=== PATIENT | male | born 1955 | race Caucasian/White ===

== ENCOUNTER → 2016-05-10 | Outpatient (REF) | payer OTHER ==
[~2016-05-10] MED LIST: ASPI1TAB PO; ASPI81TA PO; ATOR1TAB21 PO; BACL-67 PO; IBUP60TA PO; LABE10TAB PO; MAPA325T2 PO; NICO21PAT TD
== END ==
LOC: M LAB REF 16:30
PROVIDERS: ATTEND Surgery
DX: T81.500A Unspecified complication of foreign body accidentally left in body following surgical operation, initial encounter (principal)

== ENCOUNTER → 2016-05-11 | Outpatient (REF) | payer OTHER ==
[2016-05-11 15:33] LABS: ANION GAP 7 MEQ/L (8-16); BLOOD UREA NITROGEN 22 MG/DL (7-18); CALCIUM LEVEL 9.6 MG/DL (8.8-10.2); CARBON DIOXIDE LEVEL 29 MEQ/L (21-32); CHLORIDE LEVEL 105 MEQ/L (98-107); CREATININE FOR GFR 1.01 MG/DL (0.70-1.30); GLOMERULAR FILTRATION RATE > 60.0 (>49); GLUCOSE, FASTING 88 MG/DL (80-110); POTASSIUM SERUM 4.6 MEQ/L (3.5-5.1); SODIUM LEVEL 141 MEQ/L (136-145)
== END ==
LOC: M SFHCPLAZ 11:23
PROVIDERS: ATTEND Family Medicine
DX: I10 Essential (primary) hypertension (principal)

== ENCOUNTER → 2016-05-15 | Outpatient (CLI) | payer OTHER ==
[~2016-05-15] VITALS: Ht 175.3 cm; Wt 95.3 kg
[~2016-05-15] MED LIST changes: +LABETALOL HCL 100 MG/20 ML VIAL As Ordered ONE; +NS 1,000 ML IV SCH; +PROPOFOL 200 MG/20 ML VIAL As Ordered ONE
--- NOTE | 2016-05-15 10:36 | ROOR ---
Patient Name: Mo Gamble Procedure Date: 05/15/2016 10:15 AM Date of : 1955 Age: 61 Room: M OPP Gender: Male Note Status: Finalized Procedure: Colonoscopy Indications: Heme positive stool Providers: Micah DIAL MD Referring MD: Brie Gee MD Requesting Provider: Medicines: Monitored Anesthesia Care Complications: No immediate complications. Procedure: Pre-Anesthesia Assessment: - The heart rate, respiratory rate, oxygen saturations, blood pressure, adequacy of pulmonary ventilation, and response to care were monitored throughout the procedure. The Colonoscope was introduced through the anus and advanced to the cecum, identified by appendiceal orifice and ileocecal valve. The colonoscopy was performed without difficulty. The patient tolerated the procedure well. The quality of the bowel preparation was good. Findings: The perianal and digital rectal examinations were normal. Two sessile polyps were found in the sigmoid colon and in the cecum. The polyps were 4 to 5 mm in size. These polyps were removed with a cold snare. Resection and retrieval were complete. A few small-mouthed diverticula were found in the sigmoid colon. Internal hemorrhoids were found during retroflexion. The hemorrhoids were small. The exam was otherwise without abnormality on direct and retroflexion views. (Exam: Complete, Prep: Good or Excellent.) Impression: - Two 4 to 5 mm polyps in the sigmoid colon and in the cecum, removed with a cold snare. Resected and retrieved. - Mild diverticulosis in the sigmoid colon. - Small internal hemorrhoids. - The examination was otherwise normal on direct and retroflexion views. - (Exam: Complete, Prep: Good or Excellent.) Recommendation: - Telephone endoscopist for pathology results in 2 weeks. - If the pathology report reveals adenomatous tissue, then repeat the colonoscopy for surveillance in 3 - 5 years. - If the pathology report indicates hyperplastic polyp, then repeat colonoscopy for screening purposes in 10 years. Micah Dial MD Micah DIAL MD 05/15/2016 10:35:44 AM This report has been signed electronically. Number of Addenda: 0 Note Initiated On: 05/15/2016 10:15 AM Estimated Blood Loss: Estimated blood loss: none.
[2016-05-15 11:02] VITALS: BP 150/107
== END | disposition home or self-care (01) ==
LOC: M OPP 09:04
PROVIDERS: ATTEND Internal Medicine Gastroenterology
DX: D12.5 Benign neoplasm of sigmoid colon (principal); K57.30 Diverticulosis of large intestine without perforation or abscess without bleeding; K64.8 Other hemorrhoids; I10 Essential (primary) hypertension; E78.00 Pure hypercholesterolemia, unspecified; R12 Heartburn; R06.83 Snoring; M51.27 Other intervertebral disc displacement, lumbosacral region; Z87.891 Personal history of nicotine dependence; Z86.73 Personal history of transient ischemic attack (TIA), and cerebral infarction without residual deficits; Z79.82 Long term (current) use of aspirin; Z79.899 Other long term (current) drug therapy

== ENCOUNTER → 2016-07-25 | Outpatient (CLI) | payer OTHER ==
[~2016-07-25] MED LIST changes: -LABETALOL HCL 100 MG/20 ML VIAL As Ordered ONE; -NS 1,000 ML IV SCH; -PROPOFOL 200 MG/20 ML VIAL As Ordered ONE
--- NOTE | 2016-07-25 12:32 | REP ---
Clinical: Spondylosis. Technique: AP, lateral, bilateral oblique, flexion/extension and coned-down views of the lumbosacral spine. Findings: Grade 1 retrolisthesis at the L2-3 level with associated anterior osteophytes, endplate sclerosis and disc space narrowing. Grade 1 anterolisthesis at the L4-5 and L5-L1 levels with hypertrophic facet changes noted. Remainder examination demonstrates age-related changes. No evidence for acute fracture / compression injury. Impression: Degenerative changes as noted above. No acute fracture / compression injury. Signed by Maciej Barrios MD 07/25/2016 12:24 P
--- NOTE | 2016-07-25 12:45 | REP ---
CERVICAL SPINE SERIES: Full cervical spine series is performed with eight total views obtained. There is no compression fracture. There is no malalignment. There is mild reversal of the normal cervical lordosis with no prevertebral soft tissue swelling. There is moderate spurring of C4 through C7. There is mild disc space narrowing of C4-5 with subchondral sclerosis. There is moderately severe disc space narrowing at C5-6 at C5-6 and C6-7. There is diffuse narrowing, sclerosis and spurring at the posterior facet joints. Uncovertebral and facet spurring appears to cause mild neural foraminal narrowing at C4-5 and C5-6 on the left as well as at C4-5 and C6-7 on the right. There appears to be at least a moderate to severe degree of neural foraminal narrowing at C5-6 on the right. IMPRESSION: Degenerative changes as discussed in detail above, most significantly at C5-6 and C6-7. Signed by Cristiano Solano MD 07/25/2016 03:42 P
== END ==
LOC: M RAD 11:32
PROVIDERS: ATTEND Neurological Surgery
DX: M47.892 Other spondylosis, cervical region (principal); M47.896 Other spondylosis, lumbar region

== ENCOUNTER 2016-08-07 20:42 | Emergency (ER) | payer OTHER ==
[~2016-08-07] VITALS: Ht 175.3 cm; Wt 104.3 kg
[2016-08-07] MEDS ORDERED: LIDOCAINE 1% MDV 20ML VIAL IM ONE (21:45)
[2016-08-07] MEDS ORDERED: DERMABOND TOPICAL SKIN ADHESIVE TOP ONE (22:00)
[2016-08-07 22:23] VITALS: BP 157/92
--- NOTE | 2016-08-08 16:00 | ER ---
DATE OF CONSULTATION: 08/07/2016 CHIEF COMPLAINT: Abdominal wall bleeding from wound. HISTORY OF PRESENT ILLNESS: The patient is a 61-year-old male who had a wound on his left abdomen that he had excised by me in the office today. This was likely a sebaceous cyst versus a suture granuloma from a previous surgery. He had this chronic wound. He had an elliptical incision. This area was excised in the office today without any complications. He had no bleeding from this at all. He had a couple nylon sutures in place when he left the office without any difficulty. The patient called me from home about 4 hours after the procedure and he was having some significant bleeding that would not stop. I told him to hold pressure on it and place ice on it and he did that for a couple hours without any improvement so he came into the emergency room (ER) to be evaluated. In the ER they again attempted just to treat it with pressure dressings however, it would not stop bleeding, so they asked me to come evaluate. On exam, the patient does have a very large amount of bleeding from this wound that will not slow down with pressure. I got a bunch of supplies prepared, opened up his sutures and found that there was oozing from the entire wound bed. There was no one spot in particular that was bleeding. We attempted to stop this with some battery-powered cautery in the ER that did not help at all. I also tried throwing a couple 4-0 Vicryl sutures in the bottom of the wound to help close it up, that did not improve things at all either. Finally, I took some 3-0 nylon sutures and placed them full thickness through the entire depth of the wound and tied them tightly to help tamponade the bleeding. Once those sutures were in place, all of the bleeding was stopped. I then cleaned the entire area again with Betadine, placed a layer of Dermabond on top of this, and then a pressure dressing on top of that. The patient was discharged home from the emergency room to keep an eye on it. If for some reason he develops swelling in the area or bleeding returns, he is to call me and I would take him to my office in the morning and attempt closure a second time with better equipment. The patient tolerated the procedure well, had no more questions. He was discharged from the emergency room and will followup with me soon.
== END 2016-08-07 22:35 | disposition home or self-care (01) ==
LOC: M ED 21:24
DX: L76.21 Postprocedural hemorrhage of skin and subcutaneous tissue following a dermatologic procedure (principal); Z79.899 Other long term (current) drug therapy; Z79.82 Long term (current) use of aspirin

== ENCOUNTER → 2016-08-07 | Outpatient (REF) | payer OTHER | LOC: M LAB REF 18:20 | PROVIDERS: ATTEND Surgery | DX: D48.5 Neoplasm of uncertain behavior of skin (principal) ==

== ENCOUNTER → 2016-08-21 | Outpatient (CLI) | payer OTHER ==
[2016-08-21 16:49] LABS: BASO # 0.1 K/mm3 (0.0-0.2); BASO % 0.8 % (0.0-1.0); EOS # 0.1 K/mm3 (0.0-0.50); EOS % 1.1 % (0.0-3.0); LARGE UNSTAINED CELL # 0.2 K/mm3 (0.0-0.4); LARGE UNSTAINED CELL % 2.7 % (0.0-4.0); LYMPH # 1.4 K/mm3 (1.5-4.5); MEAN CORPUSCULAR HEMOGLOBIN 32.2 pg (27.0-33.0); MEAN CORPUSCULAR VOLUME 97.6 fl (80.0-96.0); MONO # 0.5 K/mm3 (0.0-0.8); MONO % 6.7 % (0.0-5.0); NEUTROPHILS % 69.7 % (36.0-66.0); PLATELET COUNT, AUTOMATED 305 k/mm3 (150-450); WHITE BLOOD COUNT 7.2 K/mm3 (4.0-10.0)
[2016-08-21 16:55] LABS: INR 0.96
--- NOTE | 2016-08-21 17:16 | REP ---
Chest x-ray: Two views. History: Encounter for other procedural examination. Comparison chest x-ray: February 15, 2016. Findings: The lungs are symmetrically aerated and free of infiltrate. Pleural angles are sharp. Left hemidiaphragm is very slightly elevated, unchanged. Pulmonary vasculature is not increased. There are two orthopedic metallic anchors in the right humeral head and there is old calcification or ossification in the coracoclavicular ligament on the right side. No other significant bony abnormality is seen. The heart is not enlarged. Impression: No active cardiopulmonary disease. Signed by Marlon Ruiz MD 08/22/2016 01:36 P
[2016-08-21 18:02] LABS: ALBUMIN/GLOBULIN RATIO 1.29 (1.00-1.93); ALKALINE PHOSPHATASE 67 U/L (45-117); ALT/SGPT 25 U/L (12-78); ANION GAP 7 MEQ/L (8-16); AST/SGOT 13 U/L (15-37); BILIRUBIN,TOTAL 0.3 MG/DL (0.2-1.0); BLOOD UREA NITROGEN 12 MG/DL (7-18); CALCIUM LEVEL 9.4 MG/DL (8.8-10.2); CARBON DIOXIDE LEVEL 30 MEQ/L (21-32); CHLORIDE LEVEL 106 MEQ/L (98-107); GLOMERULAR FILTRATION RATE > 60.0 (>49); GLUCOSE, FASTING 111 MG/DL (80-110); POTASSIUM SERUM 3.8 MEQ/L (3.5-5.1); SODIUM LEVEL 143 MEQ/L (136-145); TOTAL PROTEIN 7.1 GM/DL (6.4-8.2)
--- NOTE | 2016-08-21 19:07 | ECGEPIP ---
Stationary ECG Study [facility] Test Date: 2016-08-21 Pat Name: HEMANTH CASTRO Department: Room: - Gender: M C[employer] Sack [employer]aker: MERY : 1955 Requested By: TATYANA Shukla Order Number: [id number] Reading MD: Micah Snow Measurements Intervals [place] Rate: 69 P: 54 NH: 172 QRS: -11 QRSD: 106 T: 13 QT: 397 QTc: 428 Interpretive Statements SINUS RHYTHM WITH SINUS ARRHYTHMIA INCOMPLETE RIGHT BUNDLE BRANCH BLOCK as QRS is slightly longer when compared to tracing from 02-17-16 Electronically Signed On 08-21-2016 19:07:18 EDT by Micah Snow
== END ==
LOC: M LAB 15:40
PROVIDERS: ATTEND Neurological Surgery
DX: Z01.818 Encounter for other preprocedural examination (principal); M48.00 Spinal stenosis, site unspecified

== ENCOUNTER 2016-09-03 09:09 | Day surgery (SDC) | payer OTHER ==
[~2016-09-03] VITALS: Ht 175.3 cm; Wt 104.3 kg
[2016-09-03] MEDS ORDERED: dexameTHASONE 4 MG/ML 1ML VIAL (J1100) IV ONE (09:15)
[2016-09-03] MEDS ORDERED: LR 1,000 ML IV ONE (09:15)
[2016-09-03] MEDS ORDERED: methylPREDNISolone SUSP 40 MG/ML (DEPO-medrol) VIAL (J1030) As Ordered ONE ×2 (10:36→14:49)
[2016-09-03] MEDS ORDERED: THROMBIN SOLN 20,000 UNITS KIT As Ordered ONE (10:36)
[2016-09-03] MEDS ORDERED: BACITRACIN PWD 50,000 UNITS VIAL As Ordered ONE ×2 (10:37→11:46)
[2016-09-03] MEDS ORDERED: dexameTHASONE 4 MG/ML 1ML VIAL (J1100) As Ordered ONE (11:11)
[2016-09-03] MEDS ORDERED: PROPOFOL 200 MG/20 ML VIAL As Ordered ONE (11:11)
[2016-09-03] MEDS ORDERED: fentaNYL 250 MCG/5 ML INJECTION (J3010) As Ordered ONE (11:11)
[2016-09-03] MEDS ORDERED: ROCURONIUM BROMIDE 50 MG/5 ML VIAL As Ordered ONE ×2 (11:11→12:31)
[2016-09-03] MEDS ORDERED: LIDOCAINE 2% INJ 100 MG/5 ML SDV (FOR ANES.) As Ordered ONE (11:11)
[2016-09-03] MEDS ORDERED: MIDAZOLAM INJ 2 MG/2 ML VIAL (J2250) As Ordered ONE (11:12)
[2016-09-03] MEDS ORDERED: ePHEDrine SULFATE 25 MG/5 ML(5MG/ML) SYRINGE As Ordered ONE (12:15)
[2016-09-03] MEDS ORDERED: HYDROmorphone HCL 2 MG/ML 1ML VIAL (J1170) As Ordered ONE (13:38)
[2016-09-03] MEDS ORDERED: PHENYLephrine HCL 500 MCG/5 ML (100MCG/ML) SYRINGE (J2370) As Ordered ONE (13:45)
--- NOTE | 2016-09-03 14:42 | REP ---
LUMBAR SPINE, ONE VIEW: HISTORY: Spinal stenosis. A single portable lateral radiograph was obtained. A metal probe present overlying the neural arch at the L1-2 level. Signed by Jose Franco MD 09/03/2016 02:47 P
[2016-09-03] MEDS ORDERED: GLYCOPYRROLATE INJ 0.2 MG/ML 2 ML VIAL As Ordered ONE (15:27)
[2016-09-03] MEDS ORDERED: NEOSTIGMINE 1MG/ML 5 ML SYRINGE (J2710) As Ordered ONE (15:27)
[2016-09-03] MEDS ORDERED: ONDANSETRON 4MG/2ML VIAL (J2405) As Ordered ONE (15:35)
[2016-09-03] MEDS ORDERED: ceFAZolin 1GM INJ (J0690) As Ordered ONE (16:32)
[2016-09-03] MEDS ORDERED: MORPHINE 10 MG/ML 1ML VIAL As Ordered ONE (17:33)
[2016-09-03] MEDS: MORPHINE 2 MG/ML 1ML SYRINGE IV PRN ×5 (17:35→17:55)
[2016-09-03] MEDS ORDERED: ONDANSETRON 4MG/2ML VIAL (J2405) IV PRN ×2 (17:45)
[2016-09-03] MEDS ORDERED: ACETAMINOPHEN TAB 650MG DOSE (2X325MG) PO PRN (17:45)
[2016-09-03] MEDS ORDERED: MORPHINE 4 MG/ML 1ML SYRINGE IV PRN (17:45)
[2016-09-03] MEDS ORDERED: NORCO, ANEXSIA 5/325MG TABLET (HYDROcodone/ACETAMINOPHEN) PO PRN (17:45)
[2016-09-03] MEDS ORDERED: fentaNYL 100 MCG/2 ML INJECTION (J3010) IV PRN (17:45)
[2016-09-03] MEDS ORDERED: KCL 20MEQ IN D5/0.45NS 1000ML 1,000 ML IV SCH (17:45)
[2016-09-03] MEDS: LR 1,000 ML IV SCH ×2 (17:45→19:51)
[2016-09-03] MEDS: CEFUROXIME SODIUM 750 MG in D5W MINI-BAG PLUS 50 ML IV SCH (19:50)
[2016-09-03 20:00] VITALS: BP 130/72
[2016-09-03] MEDS: CARISOPRODOL 350 MG TAB PO SCH (20:05)
[2016-09-03] MEDS: NORCO, ANEXSIA 5/325MG TABLET (HYDROcodone/ACETAMINOPHEN) PO PRN (20:06)
[2016-09-03 21:00] VITALS: BP 143/90
[2016-09-03 22:00] VITALS: BP 125/77
[2016-09-03 23:00] VITALS: BP 135/72
[2016-09-04 02:00] VITALS: BP 125/77
[2016-09-04] MEDS: CEFUROXIME SODIUM 750 MG in D5W MINI-BAG PLUS 50 ML IV SCH ×2 (03:17→12:00)
[2016-09-04] MEDS: NORCO, ANEXSIA 5/325MG TABLET (HYDROcodone/ACETAMINOPHEN) PO PRN ×2 (04:05→10:07)
[2016-09-04 06:00] VITALS: BP 127/67
[2016-09-04] MEDS: CARISOPRODOL 350 MG TAB PO SCH (10:06)
[2016-09-04] MEDS ORDERED: NORC1TAB4 PO (12:54)
[2016-09-04] MEDS ORDERED: CIPR-250 PO (12:54)
--- NOTE | 2016-09-20 15:22 | RO ---
DATE OF PROCEDURE: 09/03/2016 PREOPERATIVE DIAGNOSES: Lumbar spondylosis, radiculopathy, neurogenic claudication, probable synovial cyst L1-L2, and lumbar stenosis at L4-L5. POSTOPERATIVE DIAGNOSES: Lumbar spondylosis, radiculopathy, neurogenic claudication, probable synovial cyst L1-L2, and lumbar stenosis at L4-L5. PROCEDURE: Left L1-L2 and L4-5 decompression with partial facet rhizotomies on the left from L1 through S1. SURGEON: Ivan Barros MD DIRECTOR TOXICOLOGY: Lyla Meneses PA-C ANESTHESIA: General. FINDINGS: Please see my office notes for detailed preoperative evaluation and discussions. Patient had symptomatic lumbar spondylosis with neurogenic and radicular pain in his low back and left leg mostly. Patient's workup showed diffuse degenerative changes involving the disc spaces as well as the posterior elements, particularly at L1-L2 as well as L4-L5. Patient was aware of all options, risks, scope, expected outcome, sequelae, and complications of the proposed salvage decompression. Patient understood that not all his symptoms could be readily explained on his workup, thus not all may be addressed. He understood his surgery may be staged. Patient understood the risks of surgery include, but are not limited to, , paralysis, coma, meningitis, spinal fluid leakage, seizure disorder, persistence or worsening of symptoms, and/or any catastrophic sequelae. Patient understood the risks include pulmonary embolism (PE), myocardial infarction (LA), deep venous thrombosis (DVT), Infection, bleeding. Patient reported once again that there is no way he is willing to live with his pain and misery and is willing to take any or all risk for any possible benefit. After informed consent and after all matters pertaining to surgery, anesthesia, and followup care had been discussed with him on a few occasions and also in the preoperative area, he wished to proceed with surgery. DESCRIPTION OF PROCEDURE: Once in the operating room, general endotracheal anesthesia was given by the anesthesia service. The area of surgery was prepped and draped in the usual sterile fashion after placing positioning him prone on a translucent Jb frame and a fluoroscopic table. After adequate prep and drape and under x-ray guidance, a skin incision was given centering over the spinous process of L1-L2. Lumbodorsal fascia were reached and incised to the left of the midline. Paraspinal muscles were from midline structures and held apart with the help of self-retaining retractors. There was marked hypertrophy of exposed facets. Posterolateral aspect of these were coagulated with the bipolar cautery in the hope of achieving partial facet rhizotomies. Generous lico-semi laminectomies were performed. Hypertrophic ligamentum flavum and facets were removed and rongeured. There was some scarring peridurally, suggestive of a ruptured synovial cyst. Complete decompression of the thecal sac was performed, and the decompression was carried inferiorly until the origin of the L3 nerve root. Superiorly and laterally, decompression was carried out in between the pedicles to make more room for the exiting nerve root. Similar procedure was carried out at L4-L5. Findings were similar. Complete decompression was carried out on the left and across the midline at these levels. There was hard and firm bulging disc at these levels, and they were left in situ. Complete decompression was achieved at these levels, and the posterolateral aspect of the facets which had quite a bit of redundant capsules were coagulated from L1 through S1 on the left with bipolar cautery in the hope of achieving partial facet rhizotomies. Hemostasis was checked and secured throughout the procedure. The blood loss was less than 100 mL. The wound was closed in anatomic layers. Patient tolerated the procedure well and was transferred to recovery room in stable condition.
== END 2016-09-04 13:30 | disposition home or self-care (01) ==
LOC: M SDC 09:09 → M MS5PR 18:20 → M SDC 09-04 13:30
PROVIDERS: ATTEND Neurological Surgery
DX: M47.26 Other spondylosis with radiculopathy, lumbar region (principal); M53.86 Other specified dorsopathies, lumbar region; M48.06 Spinal stenosis, lumbar region; M79.604 Pain in right leg; M79.605 Pain in left leg; I10 Essential (primary) hypertension; Z91.89 Other specified personal risk factors, not elsewhere classified; R31.9 Hematuria, unspecified; Z86.73 Personal history of transient ischemic attack (TIA), and cerebral infarction without residual deficits; R05 Cough; R12 Heartburn; K59.00 Constipation, unspecified; R06.83 Snoring; E78.00 Pure hypercholesterolemia, unspecified; Z87.19 Personal history of other diseases of the digestive system; Z87.891 Personal history of nicotine dependence; Z79.899 Other long term (current) drug therapy; Z79.82 Long term (current) use of aspirin
CPT/HCPCS: 63030; 63035; 63185; 72110; 88305; 96375; 96376; C1762; J0690; J0697; J1030; J1100; J1170; J2250; J2370; J2405; J2710; J3010

== ENCOUNTER → 2016-10-31 | Outpatient (REF) | payer OTHER ==
[~2016-10-31] MED LIST changes: -BACL-67 PO; +BACL1TAB9 PO; +CIPR-250 PO; +IBUP1TAB6 PO; -IBUP60TA PO; +NORC1TAB4 PO
[2016-10-31 16:33] LABS: ANION GAP 4 MEQ/L (8-16); BLOOD UREA NITROGEN 17 MG/DL (7-18); CALCIUM LEVEL 8.8 MG/DL (8.8-10.2); CARBON DIOXIDE LEVEL 30 MEQ/L (21-32); CHLORIDE LEVEL 108 MEQ/L (98-107); CREATININE FOR GFR 1.01 MG/DL (0.70-1.30); GLOMERULAR FILTRATION RATE > 60.0 (>49); GLUCOSE, FASTING 111 MG/DL (80-110); SODIUM LEVEL 142 MEQ/L (136-145)
== END ==
LOC: M SFHCPLAZ 11:28
PROVIDERS: ATTEND Family Medicine
DX: I10 Essential (primary) hypertension (principal)

== ENCOUNTER → 2017-08-16 | Outpatient (REF) | payer OTHER ==
[2017-08-16 15:51] LABS: ANION GAP 4 MEQ/L (8-16); BLOOD UREA NITROGEN 16 MG/DL (7-18); CALCIUM LEVEL 9.4 MG/DL (8.8-10.2); CARBON DIOXIDE LEVEL 28 MEQ/L (21-32); CHLORIDE LEVEL 109 MEQ/L (98-107); CHOLESTEROL LEVEL 118 MG/DL (<200); CHOLESTEROL RISK RATIO 1.903 (<5); CREATININE FOR GFR 0.99 MG/DL (0.70-1.30); GLOMERULAR FILTRATION RATE > 60.0 (>49); GLUCOSE, FASTING 112 MG/DL (70-100); HDL CHOLESTEROL 62 MG/DL (>40); NON-HDL-C 56 MG/DL; POTASSIUM SERUM 4.5 MEQ/L (3.5-5.1); SODIUM LEVEL 141 MEQ/L (136-145); TRIGLYCERIDES LEVEL 80 MG/DL (<150)
== END ==
LOC: M LABDRAW1 11:54
DX: I63.9 Cerebral infarction, unspecified (principal); I10 Essential (primary) hypertension

== ENCOUNTER → 2018-05-15 | Outpatient (REF) | payer OTHER ==
[~2018-05-15] MED LIST changes: +ASPI81CH40 PO; -ASPI81TA PO
== END ==
LOC: M LABDRAW1 15:30
PROVIDERS: ATTEND Family Medicine
DX: Z13.1 Encounter for screening for diabetes mellitus (principal)

== ENCOUNTER → 2018-06-26 | Outpatient (REF) | payer OTHER | LOC: M LAB REF 16:45 | PROVIDERS: ATTEND Surgery | DX: L02.219 Cutaneous abscess of trunk, unspecified (principal) ==

== ENCOUNTER → 2018-12-12 | Outpatient (REF) | payer OTHER ==
[~2018-12-12] MED LIST changes: -ASPI1TAB PO; +ASPI81CH36 PO; -ASPI81CH40 PO; +ASPI81TA26 PO; -NORC1TAB4 PO; +NORC1TAB7 PO
[2018-12-12 13:24] LABS: ALT/SGPT 28 U/L (12-78); BILIRUBIN,TOTAL 0.3 MG/DL (0.2-1.0); BLOOD UREA NITROGEN 15 MG/DL (7-18); CALCIUM LEVEL 8.9 MG/DL (8.8-10.2); CARBON DIOXIDE LEVEL 27 MEQ/L (21-32); CHLORIDE LEVEL 110 MEQ/L (98-107); CHOLESTEROL LEVEL 126 MG/DL (<200); CHOLESTEROL RISK RATIO 2.135 (<5); CREATININE FOR GFR 0.99 MG/DL (0.70-1.30); GLOMERULAR FILTRATION RATE > 60.0 (>49); GLUCOSE, FASTING 120 MG/DL (70-100); HDL CHOLESTEROL 59 MG/DL (>40); LDL CHOLESTEROL 52 MG/DL (<100); NON-HDL-C 67 MG/DL; POTASSIUM SERUM 4.5 MEQ/L (3.5-5.1); SODIUM LEVEL 142 MEQ/L (136-145); TOTAL PROTEIN 6.9 GM/DL (6.4-8.2); TRIGLYCERIDES LEVEL 76 MG/DL (<150)
[2018-12-12 13:29] LABS: CREATININE, URINE 45.3 MG/DL
== END ==
LOC: M LABDRAW1 11:51
PROVIDERS: ATTEND Family Medicine
DX: I10 Essential (primary) hypertension (principal); I63.9 Cerebral infarction, unspecified; Z72.89 Other problems related to lifestyle

== ENCOUNTER → 2019-06-12 | Outpatient (REF) | payer OTHER ==
[~2019-06-12] MED LIST changes: +ASPI81CH32 PO; -ASPI81CH36 PO
[2019-06-12 14:01] LABS: BLOOD UREA NITROGEN 20 MG/DL (7-18); CALCIUM LEVEL 9.5 MG/DL (8.8-10.2); CARBON DIOXIDE LEVEL 26 MEQ/L (21-32); CHLORIDE LEVEL 107 MEQ/L (98-107); GLOMERULAR FILTRATION RATE > 60.0 (>49); GLUCOSE, FASTING 94 MG/DL (70-100); POTASSIUM SERUM 4.5 MEQ/L (3.5-5.1); SODIUM LEVEL 140 MEQ/L (136-145)
== END ==
LOC: M SFHCPLAZ 11:31
PROVIDERS: ATTEND Family Medicine
DX: I10 Essential (primary) hypertension (principal)

== ENCOUNTER → 2019-12-08 | Outpatient (REF) | payer OTHER ==
[~2019-12-08] MED LIST changes: -MAPA325T2 PO; +MAPA325T8 PO
[2020-01-04 14:51] LABS: WHITE BLOOD COUNT 12.6 10^3/uL (4.0-10.0)
[2020-01-04 14:52] LABS: HEMATOCRIT 40.5 % (42.0-52.0); HEMOGLOBIN 13.3 g/dl (13.5-17.5); MEAN CORPUSCULAR HEMOGLOBIN 32.5 pg (27.0-33.0); MEAN CORPUSCULAR HGB CONC 32.8 g/dl (32.0-36.5); PLATELET COUNT, AUTOMATED 366 10^3/uL (150-450); RED BLOOD COUNT 4.09 10^6/uL (4.30-6.10)
[2020-01-22 13:23] LABS: BLOOD UREA NITROGEN 15 MG/DL (7-18); CALCIUM LEVEL 9.3 MG/DL (8.8-10.2); CARBON DIOXIDE LEVEL 29 MEQ/L (21-32); CHLORIDE LEVEL 105 MEQ/L (98-107); CREATININE FOR GFR 1.05 MG/DL (0.70-1.30); FERRITIN 166 NG/ML (26-388); GLOMERULAR FILTRATION RATE > 60.0 (>49); GLUCOSE, FASTING 118 MG/DL (70-100); IRON (FE) 11 UG/DL (65-175); PERCENT SATURATION 3.8 % (19.7-50.0); POTASSIUM SERUM 4.9 MEQ/L (3.5-5.1); SODIUM LEVEL 139 MEQ/L (136-145); TOTAL IRON BINDING CAPACITY 292 UG/DL (250-450)
== END ==
LOC: M SFHCPLAZ 13:37
PROVIDERS: ATTEND Family Medicine
DX: I10 Essential (primary) hypertension (principal); K92.1 Melena

== ENCOUNTER → 2020-06-14 | Outpatient (REF) | payer MEDICARE, OTHER ==
[~2020-06-14] MED LIST changes: +LABE100T4 PO; -LABE10TAB PO
[2020-06-14 14:55] LABS: BLOOD UREA NITROGEN 20 MG/DL (7-18); CALCIUM LEVEL 8.9 MG/DL (8.8-10.2); CARBON DIOXIDE LEVEL 28 MEQ/L (21-32); CHLORIDE LEVEL 108 MEQ/L (98-107); CREATININE FOR GFR 1.07 MG/DL (0.70-1.30); GLOMERULAR FILTRATION RATE > 60.0 (>49); GLUCOSE, FASTING 119 MG/DL (70-100); POTASSIUM SERUM 5.4 MEQ/L (3.5-5.1); SODIUM LEVEL 141 MEQ/L (136-145); TRIGLYCERIDES LEVEL 101 MG/DL (<150)
[2020-06-14 14:56] LABS: CHOLESTEROL LEVEL 144 MG/DL (<200); FERRITIN 11 NG/ML (26-388); HDL CHOLESTEROL 64 MG/DL (>40); IRON (FE) 71 UG/DL (65-175); LDL CHOLESTEROL 60 MG/DL (<100); NON-HDL-C 80 MG/DL; PERCENT SATURATION 18.7 % (19.7-50.0); TOTAL IRON BINDING CAPACITY 380 UG/DL (250-450)
[2020-06-14 15:33] LABS: HEMATOCRIT 40.2 % (42.0-52.0); HEMOGLOBIN 12.7 g/dl (13.5-17.5); MEAN CORPUSCULAR HEMOGLOBIN 29.7 pg (27.0-33.0); MEAN CORPUSCULAR HGB CONC 31.6 g/dl (32.0-36.5); MEAN CORPUSCULAR VOLUME 94.1 fl (80.0-96.0); PLATELET COUNT, AUTOMATED 329 10^3/uL (150-450); RED BLOOD COUNT 4.27 10^6/uL (4.30-6.10); WHITE BLOOD COUNT 7.6 10^3/uL (4.0-10.0)
== END ==
LOC: M SFHCPLAZ 11:48
PROVIDERS: ATTEND Family Medicine
DX: D50.9 Iron deficiency anemia, unspecified (principal); Z86.73 Personal history of transient ischemic attack (TIA), and cerebral infarction without residual deficits; I10 Essential (primary) hypertension

== ENCOUNTER → 2020-06-21 | Outpatient (REF) | payer OTHER ==
[2020-06-21 15:40] LABS: BLOOD UREA NITROGEN 28 MG/DL (7-18); CALCIUM LEVEL 9.5 MG/DL (8.8-10.2); CARBON DIOXIDE LEVEL 29 MEQ/L (21-32); CHLORIDE LEVEL 106 MEQ/L (98-107); CREATININE FOR GFR 1.18 MG/DL (0.70-1.30); GLOMERULAR FILTRATION RATE > 60.0 (>49); GLUCOSE, FASTING 88 MG/DL (70-100); POTASSIUM SERUM 5.1 MEQ/L (3.5-5.1); SODIUM LEVEL 141 MEQ/L (136-145)
== END ==
LOC: M PLALAB 13:45
PROVIDERS: ATTEND Family Medicine
DX: E87.5 Hyperkalemia (principal)

== ENCOUNTER → 2020-12-07 | Outpatient (CLI) | payer MEDICARE, OTHER ==
--- NOTE | 2020-12-07 14:44 | REP ---
INDICATION: SACROCOCCYGEAL DISORDER. COMPARISON: None. TECHNIQUE: Multiple views FINDINGS: Multiple views of the sacroiliac joints show them to be non-fused. There is no lysis or sclerosis of either the sacral or iliac side of either SI joint. There is no evidence of whiskering. There is no prominent osteophytosis. There is a mixed density lesion in the right acetabulum. This is unchanged when also viewed on a lumbar spine exam of 06/27/2016 IMPRESSION: SI joints within normal limits. Other findings as described above. <Electronically signed by Joey Zendejas > 12/07/20 [id number]
[2020-12-07 15:26] LABS: HEMATOCRIT 45.9 % (42.0-52.0); HEMOGLOBIN 14.8 g/dl (13.5-17.5); MEAN CORPUSCULAR HEMOGLOBIN 31.6 pg (27.0-33.0); MEAN CORPUSCULAR HGB CONC 32.2 g/dl (32.0-36.5); MEAN CORPUSCULAR VOLUME 97.9 fl (80.0-96.0); PLATELET COUNT, AUTOMATED 370 10^3/uL (150-450); RED BLOOD COUNT 4.69 10^6/uL (4.30-6.10); WHITE BLOOD COUNT 7.8 10^3/uL (4.0-10.0)
--- NOTE | 2020-12-07 15:27 | REP ---
INDICATION: SACROCOCCYGEAL DISORDER. COMPARISON: Abdomen/pelvis CT dated 06/10/2012 and plain film lumbar spine dated 07/25/2016. TECHNIQUE: There are 7 views including lateral views with flexion and extension. FINDINGS: Vertebral body heights are normal and unchanged. There is disc space narrowing at L2-3 with calcification anteriorly at the annulus, not significantly changed, compatible with degenerative disc disease. There is slight retrolisthesis of L2 on 3, likely degenerative. This is unchanged. There is mild anterolisthesis of L4 on 5, unchanged, likely degenerative. No definite pars interarticularis defects are identified. There is no change in the alignment of L2-3 or L4-5 on flexion or extension. There is no change in the alignment of the remainder of the vertebral bodies. There is mild osteoarthritis of the posterior facets, particularly at the lower lumbar levels. The pedicles are unremarkable. Sacroiliac articulations are unremarkable. There is a circumferential surgical staple ring inferiorly in the abdomen on the left compatible with bowel surgery, not present on the comparison study. IMPRESSION: No significant interval change except for a circumferential surgical staple ring inferiorly in the abdomen on the left. There is no change in the degenerative disc disease and mild retrolisthesis of L2 at the L2-3 level or the mild anterolisthesis at the L4-5 level on flexion or extension views. <Electronically signed by Cristiano Negron > 12/07/20 [id number]
[2020-12-07 16:00] LABS: BLOOD UREA NITROGEN 17 MG/DL (7-18); CARBON DIOXIDE LEVEL 28 MEQ/L (21-32); CHLORIDE LEVEL 105 MEQ/L (98-107); FERRITIN 28 NG/ML (26-388); GLOMERULAR FILTRATION RATE > 60.0 (>49); GLUCOSE, FASTING 114 MG/DL (70-100); POTASSIUM SERUM 4.7 MEQ/L (3.5-5.1); SODIUM LEVEL 140 MEQ/L (136-145)
== END ==
LOC: M PLAIMG 12:56
PROVIDERS: ATTEND Family Medicine
DX: I10 Essential (primary) hypertension (principal); M53.3 Sacrococcygeal disorders, not elsewhere classified; D50.9 Iron deficiency anemia, unspecified

== ENCOUNTER → 2021-01-11 | Outpatient (CLI) | payer MEDICARE, OTHER ==
--- NOTE | 2021-01-11 12:31 | REPVR ---
PROCEDURE INFORMATION: Exam: MR Lumbar Spine Without Contrast Exam date and time: 01/11/2021 10:37 AM Age: 65 years old Clinical indication: Low back pain TECHNIQUE: Imaging protocol: Multiplanar magnetic resonance images of the lumbar spine without intravenous contrast. COMPARISON: CR Spine,LS wBENDING MIN 6 VIEWS 12/07/2020 1:45 PM FINDINGS: Vertebrae: Exaggeration of the lumbar lordosis. 4 mm of grade 1 degenerative anterolisthesis of L4 on L5. 2 mm of degenerative retrolisthesis of L1 on L2, L2 on L3 and L3 on L4. No acute fracture seen. Developmental spinal canal narrowing due to shortened pedicles. Spinal cord: The conus medullaris ends normally. Tkxb-sb-tpilwwwt disc height loss and spondylosis at L2-L3. Mild endplate degenerative changes at L4-L5. L1-L2: Slight retrolisthesis. Mild diffuse disc bulge as well as mild to moderate facet arthropathy and right ligamentum flavum buckling. Prior left hemilaminectomy decompresses the central spinal canal. No significant neural foraminal stenoses. L2-L3: Slight retrolisthesis. Yuqa-pr-uoddqzyx diffuse disc bulge. High-intensity zones in the far lateral disc margins without focal disc protrusions or extrusions. Ivid-we-kiirdyuz facet arthropathy and ligamentum flavum buckling with facet joint effusions. Central spinal canal stenosis is mild. Moderate right and mild left neural foraminal stenoses. L3-L4: Retrolisthesis. Lbht-ou-bmhgtqhe diffuse disc bulge as well as moderate facet arthropathy and ligamentum flavum buckling with small facet joint effusions. There is mildly prominent dorsal epidural fat. Central spinal canal stenosis is mild, in part on a developmental basis. Lxdy-zc-tkazupre bilateral neural foraminal stenoses. L4-L5: Anterolisthesis with pseudobulging of the intervertebral disc. Severe facet arthropathy and ligamentum flavum buckling. A cranially migrating right paracentral disc extrusion with high-intensity zone measures approximately 5 mm in AP dimension and extends approximately 5 mm above the disc space, image 9 series 301, image 9 series 601. Central spinal canal stenosis is moderate; a paucity of CSF between the cauda equina nerve roots. The right lateral recess is effaced near the right L5 nerve root. Moderate right and yfws-xk-mpjhydyv left neural foraminal stenoses, the exiting right L4 nerve root may contact foraminal disc material. Probably prior left hemilaminectomy. Some limitations assessing this level due to motion artifacts. L5-S1: Mild disc bulge as well as severe facet arthropathy. On axial image 5 of series 601, suggestion of a 3-4 mm intracanalicular synovial cyst on the left. Due to motion artifacts and slice gap, difficult to assess the cyst relative to the left S1 nerve root. No significant central spinal canal or neural foraminal stenoses. Soft tissues: Unremarkable. IMPRESSION: 1. Images are mildly motion degraded. To better visualize the L4-L5 and L5-S1 levels, limited repeat imaging could be obtained. 2. Central spinal canal as well as right lateral recess and neural foraminal stenoses at L4-L5. Electronically signed by: Lety Arnold On 01/11/2021 12:31:16 PM
== END ==
LOC: M RAD 09:57
PROVIDERS: ATTEND Orthopaedic Surgery
DX: M54.16 Radiculopathy, lumbar region (principal); M21.371 Foot drop, right foot

== ENCOUNTER → 2021-06-13 | Outpatient (CLI) | payer MEDICARE, OTHER ==
[2021-06-13 16:21] LABS: HEMATOCRIT 44.1 % (42.0-52.0); HEMOGLOBIN 14.3 g/dl (13.5-17.5); MEAN CORPUSCULAR HEMOGLOBIN 32.2 pg (27.0-33.0); MEAN CORPUSCULAR HGB CONC 32.4 g/dl (32.0-36.5); MEAN CORPUSCULAR VOLUME 99.3 fl (80.0-96.0); PLATELET COUNT, AUTOMATED 339 10^3/uL (150-450); RED BLOOD COUNT 4.44 10^6/uL (4.30-6.10); WHITE BLOOD COUNT 8.2 10^3/uL (4.0-10.0)
[2021-06-13 16:40] LABS: ALBUMIN 4.2 GM/DL (3.2-5.2); ALT/SGPT 22 U/L (12-78); BILIRUBIN,TOTAL 0.4 MG/DL (0.2-1.0); BLOOD UREA NITROGEN 20 MG/DL (7-18); CALCIUM LEVEL 9.4 MG/DL (8.8-10.2); CARBON DIOXIDE LEVEL 27 MEQ/L (21-32); CHLORIDE LEVEL 109 MEQ/L (98-107); CHOLESTEROL LEVEL 128 MG/DL (<200); CHOLESTEROL RISK RATIO 2.415 (<5); CREATININE FOR GFR 0.99 MG/DL (0.70-1.30); GLOMERULAR FILTRATION RATE > 60.0 (>49); GLUCOSE, FASTING 95 MG/DL (70-100); HDL CHOLESTEROL 53 MG/DL (>40); LDL CHOLESTEROL 58 MG/DL (<100); NON-HDL-C 75 MG/DL; POTASSIUM SERUM 5.7 MEQ/L (3.5-5.1); SODIUM LEVEL 143 MEQ/L (136-145); TRIGLYCERIDES LEVEL 87 MG/DL (<150)
== END ==
LOC: M PLALAB 12:01
PROVIDERS: ATTEND Family Medicine
DX: I10 Essential (primary) hypertension (principal); E78.5 Hyperlipidemia, unspecified; D50.9 Iron deficiency anemia, unspecified

== ENCOUNTER → 2021-06-14 | Outpatient (CLI) | payer MEDICARE ==
[2021-06-14 13:24] LABS: BLOOD UREA NITROGEN 23 MG/DL (7-18); CALCIUM LEVEL 9.3 MG/DL (8.8-10.2); CARBON DIOXIDE LEVEL 28 MEQ/L (21-32); CHLORIDE LEVEL 107 MEQ/L (98-107); CREATININE FOR GFR 0.91 MG/DL (0.70-1.30); GLOMERULAR FILTRATION RATE > 60.0 (>49); GLUCOSE, FASTING 103 MG/DL (70-100); POTASSIUM SERUM 4.6 MEQ/L (3.5-5.1); SODIUM LEVEL 139 MEQ/L (136-145)
== END ==
LOC: M PLALAB 11:03
PROVIDERS: ATTEND Family Medicine
DX: E87.5 Hyperkalemia (principal)

== ENCOUNTER → 2021-06-20 | Outpatient (CLI) | payer MEDICARE ==
[2021-06-20 15:39] LABS: BLOOD UREA NITROGEN 22 MG/DL (7-18); CALCIUM LEVEL 9.8 MG/DL (8.8-10.2); CARBON DIOXIDE LEVEL 30 MEQ/L (21-32); CHLORIDE LEVEL 107 MEQ/L (98-107); CREATININE FOR GFR 0.96 MG/DL (0.70-1.30); GLOMERULAR FILTRATION RATE > 60.0 (>49); GLUCOSE, FASTING 98 MG/DL (70-100); POTASSIUM SERUM 5.2 MEQ/L (3.5-5.1); SODIUM LEVEL 142 MEQ/L (136-145)
== END ==
LOC: M PLALAB 13:05
PROVIDERS: ATTEND Family Medicine
DX: E87.5 Hyperkalemia (principal)

== ENCOUNTER → 2021-06-27 | Outpatient (CLI) | payer MEDICARE ==
[2021-06-27 15:56] LABS: BLOOD UREA NITROGEN 20 MG/DL (7-18); CARBON DIOXIDE LEVEL 28 MEQ/L (21-32); CHLORIDE LEVEL 107 MEQ/L (98-107); CREATININE FOR GFR 0.98 MG/DL (0.70-1.30); GLOMERULAR FILTRATION RATE > 60.0 (>49); GLUCOSE, FASTING 97 MG/DL (70-100); POTASSIUM SERUM 4.8 MEQ/L (3.5-5.1); SODIUM LEVEL 142 MEQ/L (136-145)
== END ==
LOC: M PLALAB 12:05
PROVIDERS: ATTEND Family Medicine
DX: I10 Essential (primary) hypertension (principal)

== ENCOUNTER → 2021-10-12 | Outpatient (CLI) | payer MEDICARE, OTHER ==
[2021-10-12 15:23] LABS: BASO # 0.1 10^3/uL (0.0-0.2); EOS # 0.5 10^3/uL (0.0-0.5); EOS % 5.6 % (0.0-3.0); HEMATOCRIT 42.1 % (42.0-52.0); HEMOGLOBIN 13.4 g/dl (13.5-17.5); LYMPH # 1.8 10^3/uL (1.5-5.0); LYMPH % 22.5 % (24.0-44.0); MEAN CORPUSCULAR HGB CONC 31.8 g/dl (32.0-36.5); MEAN CORPUSCULAR VOLUME 97.5 fl (80.0-96.0); MONO # 0.9 10^3/uL (0.0-0.8); NEUTROPHILS # 4.8 10^3/uL (1.5-8.5); PLATELET COUNT, AUTOMATED 330 10^3/uL (150-450); RED BLOOD COUNT 4.32 10^6/uL (4.30-6.10); WHITE BLOOD COUNT 8.1 10^3/uL (4.0-10.0)
[2021-10-12 15:36] LABS: ALBUMIN 3.8 GM/DL (3.2-5.2); ALT/SGPT 23 U/L (12-78); BILIRUBIN,TOTAL 0.5 MG/DL (0.2-1.0); BLOOD UREA NITROGEN 20 MG/DL (7-18); CALCIUM LEVEL 8.8 MG/DL (8.8-10.2); CARBON DIOXIDE LEVEL 30 MEQ/L (21-32); CHLORIDE LEVEL 108 MEQ/L (98-107); CREATININE FOR GFR 1.09 MG/DL (0.70-1.30); GLOMERULAR FILTRATION RATE > 60.0 (>49); GLUCOSE, FASTING 107 MG/DL (70-100); NT-PRO BNP 72 PG/ML (<125); POTASSIUM SERUM 4.6 MEQ/L (3.5-5.1); SODIUM LEVEL 141 MEQ/L (136-145); TOTAL PROTEIN 7.1 GM/DL (6.4-8.2)
== END ==
LOC: M PLALAB 11:36
PROVIDERS: ATTEND Physician Assistant
DX: R60.0 Localized edema (principal)

== ENCOUNTER → 2021-11-30 | Outpatient (CLI) | payer MEDICARE, MEDICAID ==
[~2021-11-30] MED LIST changes: +ACET-897 PO; +FURO20TA2 PO; +NAPR-885 PO; +OMEP-173 PO
== END ==
LOC: M LABSMTC 10:20
PROVIDERS: ATTEND Anesthesiology
DX: Z20.822 Contact with and (suspected) exposure to COVID-19 (principal)

== ENCOUNTER 2021-12-05 06:51 | Day surgery (SDC) | payer MEDICARE, MEDICAID ==
[~2021-12-05] VITALS: Ht 177.8 cm; Wt 115.1 kg
[~2021-12-05 06:51] MED LIST changes: -LABE100T4 PO; +LABE100T6 PO; +NS 1,000 ML IV ONE
[2021-12-05] MEDS ORDERED: propofoL 200 MG/20 ML VIAL As Ordered ONE ×2 (07:37→07:58)
[2021-12-05] MEDS ORDERED: fentaNYL 100 MCG/2 ML INJECTION As Ordered ONE (07:37)
[2021-12-05 08:43] VITALS: BP 133/99
== END 2021-12-05 08:46 | disposition home or self-care (01) ==
LOC: M OPP 06:51
PROVIDERS: ATTEND Internal Medicine Gastroenterology
DX: Z86.010 Personal history of colon polyps (principal); K63.5 Polyp of colon; K57.30 Diverticulosis of large intestine without perforation or abscess without bleeding; K64.8 Other hemorrhoids; I10 Essential (primary) hypertension; E78.5 Hyperlipidemia, unspecified; R60.0 Localized edema; K21.9 Gastro-esophageal reflux disease without esophagitis; M19.90 Unspecified osteoarthritis, unspecified site; Z86.73 Personal history of transient ischemic attack (TIA), and cerebral infarction without residual deficits; Z87.891 Personal history of nicotine dependence; Z79.899 Other long term (current) drug therapy; Z80.3 Family history of malignant neoplasm of breast; Z84.1 Family history of disorders of kidney and ureter; Z80.8 Family history of malignant neoplasm of other organs or systems
CPT/HCPCS: 45385; 88305; J3010

== ENCOUNTER → 2022-03-27 | Outpatient (REF) | payer MEDICARE, MEDICAID, OTHER ==
[~2022-03-27] MED LIST changes: -NS 1,000 ML IV ONE
[2022-03-27 17:12] LABS: BASO # 0.1 10^3/uL (0.0-0.2); BASO % 1.1 % (0.0-1.0); EOS # 0.4 10^3/uL (0.0-0.5); EOS % 4.4 % (0.0-3.0); HEMATOCRIT 43.5 % (42.0-52.0); HEMOGLOBIN 14.2 g/dl (13.5-17.5); LYMPH # 1.4 10^3/uL (1.5-5.0); LYMPH % 17.5 % (24.0-44.0); MEAN CORPUSCULAR HEMOGLOBIN 31.4 pg (27.0-33.0); MEAN CORPUSCULAR HGB CONC 32.6 g/dl (32.0-36.5); MEAN CORPUSCULAR VOLUME 96.2 fl (80.0-96.0); MONO # 0.9 10^3/uL (0.0-0.8); MONO % 11.8 % (2.0-8.0); NEUTROPHILS # 5.1 10^3/uL (1.5-8.5); NEUTROPHILS % 64.6 % (36.0-66.0); PLATELET COUNT, AUTOMATED 334 10^3/uL (150-450); RED BLOOD COUNT 4.52 10^6/uL (4.30-6.10); WHITE BLOOD COUNT 7.9 10^3/uL (4.0-10.0)
[2022-03-27 18:38] LABS: ALBUMIN 4.2 G/DL (3.2-5.2); ALT/SGPT 26 U/L (7.0-40); BILIRUBIN,TOTAL 0.4 MG/DL (0.3-1.2); BLOOD UREA NITROGEN 19 MG/DL (9-23); CALCIUM LEVEL 9.4 MG/DL (8.3-10.6); CARBON DIOXIDE LEVEL 28 MMOL/L (20-31); CHLORIDE LEVEL 103 MMOL/L (98-107); CREATININE FOR GFR 0.93 MG/DL (0.70-1.30); GLOMERULAR FILTRATION RATE > 60.0 (>49); GLUCOSE, FASTING 104 MG/DL (74-106); POTASSIUM SERUM 4.4 MMOL/L (3.5-5.1); SODIUM LEVEL 140 MMOL/L (136-145); TOTAL PROTEIN 7.1 G/DL (5.7-8.2)
== END ==
LOC: M WUC 13:25
PROVIDERS: ATTEND Physician Assistant
DX: R60.0 Localized edema (principal); I10 Essential (primary) hypertension

== ENCOUNTER → 2022-10-12 | Outpatient (CLI) | payer MEDICARE, MEDICAID, OTHER ==
[2022-10-12 20:27] LABS: HEMOGLOBIN A1c 5.6 % (4.0-6.0)
[2022-10-12 20:34] LABS: ALBUMIN 4.5 G/DL (3.2-5.2); ALKALINE PHOSPHATASE 90 U/L (46-116); ALT/SGPT 32 U/L (7.0-40); AST/SGOT 18 U/L (<34); BILIRUBIN,TOTAL 0.4 MG/DL (0.3-1.2); BLOOD UREA NITROGEN 19 MG/DL (9-23); CALCIUM LEVEL 9.2 MG/DL (8.3-10.6); CARBON DIOXIDE LEVEL 27 MMOL/L (20-31); CHLORIDE LEVEL 104 MMOL/L (98-107); CHOLESTEROL LEVEL 127 MG/DL (<200); CHOLESTEROL RISK RATIO 2.15 (<5); CREATININE FOR GFR 0.93 MG/DL (0.70-1.30); GLOMERULAR FILTRATION RATE > 60.0 (>49); GLUCOSE, FASTING 111 MG/DL (74-106); LDL CHOLESTEROL 49.4 MG/DL (<100); POTASSIUM SERUM 4.2 MMOL/L (3.5-5.1); SODIUM LEVEL 141 MMOL/L (136-145); TOTAL PROTEIN 7.1 G/DL (5.7-8.2); TRIGLYCERIDES LEVEL 93 MG/DL (<150)
[2022-10-12 20:36] LABS: BASO # 0.1 10^3/uL (0.0-0.2); BASO % 1.3 % (0.0-1.0); EOS # 0.4 10^3/uL (0.0-0.5); EOS % 4.9 % (0.0-3.0); HEMATOCRIT 47.7 % (42.0-52.0); HEMOGLOBIN 15.5 g/dl (13.5-17.5); LYMPH # 1.9 10^3/uL (1.5-5.0); LYMPH % 22.2 % (24.0-44.0); MEAN CORPUSCULAR HEMOGLOBIN 32.2 pg (27.0-33.0); MEAN CORPUSCULAR HGB CONC 32.5 g/dl (32.0-36.5); MONO # 0.9 10^3/uL (0.0-0.8); MONO % 10.6 % (2.0-8.0); NEUTROPHILS # 5.3 10^3/uL (1.5-8.5); NEUTROPHILS % 60.3 % (36.0-66.0); PLATELET COUNT, AUTOMATED 313 10^3/uL (150-450); RED BLOOD COUNT 4.82 10^6/uL (4.30-6.10); WHITE BLOOD COUNT 8.7 10^3/uL (4.0-10.0)
== END ==
LOC: M WUC 11:42
PROVIDERS: ATTEND Physician Assistant
DX: I10 Essential (primary) hypertension (principal)

== ENCOUNTER → 2023-04-16 | Outpatient (REF) | payer MEDICARE, OTHER ==
[2023-04-16 16:41] LABS: PSA SCREENING 0.67 NG/ML (< 4.00)
[2023-04-16 16:44] LABS: ALBUMIN 4.4 G/DL (3.2-5.2); ALKALINE PHOSPHATASE 84 U/L (46-116); ALT/SGPT 27 U/L (7.0-40); AST/SGOT 24 U/L (<34); BILIRUBIN,TOTAL 0.5 MG/DL (0.3-1.2); BLOOD UREA NITROGEN 20 MG/DL (9-23); CARBON DIOXIDE LEVEL 30 MMOL/L (20-31); CHLORIDE LEVEL 104 MMOL/L (98-107); CREATININE FOR GFR 0.89 MG/DL (0.70-1.30); GLOMERULAR FILTRATION RATE > 60.0 (>49); GLUCOSE, FASTING 133 MG/DL (74-106); IRON (FE) 80 UG/DL (65-175); PERCENT SATURATION 22.7 % (19.7-50.0); POTASSIUM SERUM 4.5 MMOL/L (3.5-5.1); SODIUM LEVEL 141 MMOL/L (136-145); TOTAL IRON BINDING CAPACITY 353 UG/DL (250-425); TOTAL PROTEIN 7.4 G/DL (5.7-8.2)
[2023-04-16 16:46] LABS: FERRITIN 31.7 NG/ML (10.5-307.3)
[2023-04-16 16:47] LABS: BASO # 0.1 10^3/uL (0.0-0.2); BASO % 1.1 % (0.0-1.0); EOS # 0.9 10^3/uL (0.0-0.5); EOS % 10.2 % (0.0-3.0); HEMOGLOBIN 15.3 g/dl (13.5-17.5); LYMPH # 1.6 10^3/uL (1.5-5.0); LYMPH % 18.5 % (24.0-44.0); MEAN CORPUSCULAR HEMOGLOBIN 31.7 pg (27.0-33.0); MEAN CORPUSCULAR HGB CONC 32.6 g/dl (32.0-36.5); MEAN CORPUSCULAR VOLUME 97.5 fl (80.0-96.0); MONO # 0.8 10^3/uL (0.0-0.8); NEUTROPHILS % 59.6 % (36.0-66.0); PLATELET COUNT, AUTOMATED 308 10^3/uL (150-450); RED BLOOD COUNT 4.82 10^6/uL (4.30-6.10); WHITE BLOOD COUNT 8.4 10^3/uL (4.0-10.0)
[2023-04-16 17:22] LABS: HEMOGLOBIN A1c 5.6 % (4.0-6.0)
== END ==
LOC: M LABWUC 16:15
PROVIDERS: ATTEND Physician Assistant
DX: I10 Essential (primary) hypertension (principal); Z13.1 Encounter for screening for diabetes mellitus; Z12.5 Encounter for screening for malignant neoplasm of prostate; D50.9 Iron deficiency anemia, unspecified
CPT/HCPCS: 36415; 80053; 82728; 83036; 83550; 85025; G0103

== ENCOUNTER → 2023-10-15 | Outpatient (CLI) | payer MEDICARE, OTHER ==
[2023-10-15 16:28] LABS: BASO # 0.1 10^3/uL (0.0-0.2); BASO % 1.7 % (0.0-1.0); EOS # 0.6 10^3/uL (0.0-0.5); EOS % 6.5 % (0.0-3.0); HEMATOCRIT 42.8 % (42.0-52.0); HEMOGLOBIN 14.5 g/dl (13.5-17.5); LYMPH # 1.7 10^3/uL (1.5-5.0); LYMPH % 20.4 % (24.0-44.0); MEAN CORPUSCULAR HEMOGLOBIN 32.8 pg (27.0-33.0); MEAN CORPUSCULAR HGB CONC 33.9 g/dl (32.0-36.5); MEAN CORPUSCULAR VOLUME 96.8 fl (80.0-96.0); MONO # 0.8 10^3/uL (0.0-0.8); MONO % 9.8 % (2.0-8.0); NEUTROPHILS # 5.2 10^3/uL (1.5-8.5); PLATELET COUNT, AUTOMATED 328 10^3/uL (150-450); RED BLOOD COUNT 4.42 10^6/uL (4.30-6.10); WHITE BLOOD COUNT 8.5 10^3/uL (4.0-10.0)
[2023-10-15 16:46] LABS: HEMOGLOBIN A1c 5.6 % (4.0-6.0)
[2023-10-15 16:56] LABS: ALKALINE PHOSPHATASE 85 U/L (46-116); ALT/SGPT 25 U/L (7.0-40); AST/SGOT 13 U/L (<34); BILIRUBIN,TOTAL 0.6 MG/DL (0.3-1.2); BLOOD UREA NITROGEN 18 MG/DL (9-23); CALCIUM LEVEL 9.3 MG/DL (8.3-10.6); CARBON DIOXIDE LEVEL 29 MMOL/L (20-31); CHLORIDE LEVEL 107 MMOL/L (98-107); CHOLESTEROL LEVEL 129 MG/DL (<200); CHOLESTEROL RISK RATIO 2.59 (<5); CREATININE FOR GFR 0.95 MG/DL (0.70-1.30); GLOMERULAR FILTRATION RATE > 60.0 (>49); GLUCOSE, FASTING 107 MG/DL (74-106); HDL CHOLESTEROL 49.8 MG/DL (>40); LDL CHOLESTEROL 62.4 MG/DL (<100); NON-HDL-C 79.2 MG/DL; POTASSIUM SERUM 4.2 MMOL/L (3.5-5.1); PSA SCREENING 0.54 NG/ML (< 4.00); SODIUM LEVEL 141 MMOL/L (136-145); TRIGLYCERIDES LEVEL 84 MG/DL (<150)
[2023-10-15 17:00] LABS: FERRITIN 47.1 NG/ML (10.5-307.3)
== END ==
LOC: M WUC 13:54
PROVIDERS: ATTEND Physician Assistant
DX: Z13.1 Encounter for screening for diabetes mellitus (principal); I10 Essential (primary) hypertension; D50.9 Iron deficiency anemia, unspecified; Z12.5 Encounter for screening for malignant neoplasm of prostate
CPT/HCPCS: 36415; 80053; 80061; 82728; 83036; 85025; G0103

== ENCOUNTER → 2024-09-18 | Outpatient (CLI) | payer MEDICARE, OTHER ==
[~2024-09-18] MED LIST changes: +ASPI-731 PO; -ASPI81CH32 PO
== END ==
LOC: M WUC 13:36
PROVIDERS: ATTEND Physician Assistant
DX: M25.512 Pain in left shoulder (principal)

== ENCOUNTER → 2025-03-17 | Outpatient (CLI) | payer MEDICARE ==
[~2025-03-17] MED LIST changes: -IBUP1TAB6 PO; +SFHIBU600 PO
[2025-03-17 16:29] LABS: ALT/SGPT 24.0 U/L (7.0-40); AST/SGOT 18.0 U/L (<34); CALCIUM LEVEL 9.3 MG/DL (8.3-10.6); CARBON DIOXIDE LEVEL 29.0 MMOL/L (20-31); CHLORIDE LEVEL 104.0 MMOL/L (98-107); CHOLESTEROL LEVEL 125.0 MG/DL (<200); CHOLESTEROL RISK RATIO 2.24 (<5); CREATININE FOR GFR 0.98 MG/DL (0.70-1.30); GLOMERULAR FILTRATION RATE 83.5 (>49); LDL CHOLESTEROL 53.3 MG/DL (<100); NON-HDL-C 69.3 MG/DL; POTASSIUM SERUM 5.1 MMOL/L (3.5-5.1); SODIUM LEVEL 142.0 MMOL/L (136-145); TRIGLYCERIDES LEVEL 80.0 MG/DL (<150)
[2025-03-17 17:51] LABS: ESTIMATED AVERAGE GLUCOSE 117.0 MG/DL (60-110)
== END ==
LOC: M PLALAB 13:13
PROVIDERS: ATTEND Student in an Organized Health Care Education/Training Program
DX: I10 Essential (primary) hypertension (principal); E78.5 Hyperlipidemia, unspecified; Z13.1 Encounter for screening for diabetes mellitus

== ENCOUNTER → 2025-04-05 | Outpatient (CLI) | payer MEDICARE, OTHER ==
[~2025-04-05] MED LIST changes: -LABE100T6 PO; +LABE100T91 PO
== END ==
LOC: M RAD 14:31
PROVIDERS: ATTEND Family Medicine
DX: Z12.2 Encounter for screening for malignant neoplasm of respiratory organs (principal); F17.211 Nicotine dependence, cigarettes, in remission; J43.8 Other emphysema; R91.1 Solitary pulmonary nodule; I25.10 Atherosclerotic heart disease of native coronary artery without angina pectoris